=== PATIENT | male | born 1945 | race Caucasian/White ===

== ENCOUNTER → 2017-07-30 | Outpatient (CLI) | payer OTHER | END | disposition home or self-care (01) | LOC: LAB 15:29 | DX: E87.5 Hyperkalemia (principal) ==

== ENCOUNTER → 2017-11-24 | Outpatient (CLI) | payer OTHER | END | disposition home or self-care (01) | LOC: LAB 12:39 | DX: E87.5 Hyperkalemia (principal) ==

== ENCOUNTER 2018-04-05 10:58 | Inpatient (IN) | payer OTHER ==
[~2018-04-05] VITALS: Ht 193 cm; Wt 128.4 kg
--- NOTE | ~2018-04-05 | CON ---
[place], [place] REPORT OF CONSULTATION NAME: YAMEL COATS UNIT #: [id number] ROOM: 515 DOCTOR: JL GEORGE MD BIRTHDATE: [birth year] DOS: 04/05/2018 CARDIOLOGY CONSULTATION REASON FOR CONSULTATION: Congestive heart failure. CLINICAL HISTORY: The patient is a 73-year-old gentleman with history of hypertension, pacemaker, coronary artery disease, chronic kidney disease presented to the Emergency Room with increased swelling as well as progressive shortness of breath. The patient had been consuming increased salt intake recently. The patient apparently went to the [facility] for followup visit and he was sent to the Emergency Room due to symptoms and was admitted to the [facility] Cardiology consulted for further recommendations. The patient is again complaining of progressive shortness of breath and progressive edema for the past several weeks, but denies any chest pain, palpitations, or orthopnea, no PND. No nausea, vomiting, diarrhea. No fever and chills. No bladder or bowel symptoms. REVIEW OF SYSTEMS: Review of the 10 systems negative except as mentioned above. PAST MEDICAL HISTORY: 1. Coronary artery disease, status post bypass in 1999. 2. History of bradycardia with pacemaker insertion. 3. History of chronic kidney disease. 4. Hypertension. 5. Overweight. 6. History of diabetes type 2. PAST SURGICAL HISTORY: History of bypass surgery, history of cardiac stents, history of pacemaker. HOME MEDICATIONS: Reviewed. ALLERGIES: THE PATIENT IS ALLERGIC TO PENICILLIN. FAMILY HISTORY: Mother from myocardial infarction in her 60s. SOCIAL HISTORY: The patient is a former smoker, quit long time ago. Does not use drugs, does not consume alcohol. HOME MEDICATIONS: Reviewed. PHYSICAL EXAMINATION: VITAL SIGNS: Blood pressure 132/60, pulse 74, respiration rate 20. Weight 128.4 kilos, BMI 34.5. GENERAL: Alert, comfortable, in no acute distress. HEENT: Pupils round, equal. No jaundice. Tongue was moist and pharynx was clear. NECK: Supple, no distended neck veins, no carotid bruit. CHEST: Symmetrical, nontender. [place], [place] REPORT OF CONSULTATION NAME: YAMEL COATS UNIT #: [id number] ROOM: 515 DOCTOR: JL GEORGE MD BIRTHDATE: [birth year] LUNGS: A few scattered rhonchi, diminished at bases. HEART: Regular rhythm, no S3. Grade 1/6 systolic murmur. No palpable thrills. ABDOMEN: Obese, nontender. Bowel sounds normal. EXTREMITIES: Showed bilateral edema. Distal pulses are fair. SKIN: Warm and dry. No cyanosis, no clubbing. RECTAL: Deferred. GENITOURINARY: Deferred. NEUROLOGIC: The patient is alert and oriented with no focal neurologic deficit. REVIEW OF THE DIAGNOSTIC TESTS: EKG normal sinus rhythm, first degree AV block, ventricular pacing. His pertinent labs include a creatinine of 2.0, potassium 4.0, hemoglobin 12.7, platelets 264,000. WBC count 9.4. Chest x-ray showed cardiomegaly. The cardiac troponins are negative. IMPRESSION: 1. Acute on-chronic congestive heart failure, possible diastolic dysfunction. 2. Coronary artery disease, status post bypass in 1999. 3. Acute on-chronic renal failure. 4. Status post pacemaker insertion. 5. Long-term anticoagulation with Coumadin. 6. Overweight. 7. History of diabetes. RECOMMENDATIONS: 1. Continue Lasix 40 mg IV every 12 hours, monitor daily weights, in and outs, and renal function as well as blood pressures. 2. Continue rest of his home cardiac medications. 3. Check 2D echo for LV function and valvular function. 4. The patient counseled for medication compliance as well as dietary compliance. 5. Above treatment was discussed with the patient and his , who is at bedside and all questions were answered. JL GEORGE MD CM:CONSTR:REPORT OF CONSULTATION [id number] 05/16/18 0729 interface
--- NOTE | ~2018-04-05 | PR ---
[place], [place] PROGRESS NOTE NAME: YAMEL ARREAGA UNIT #: [id number] ROOM: 515 DOCTOR: ARIEL GALVIN,JL BIRTHDATE: [birth year] DOS: 04/07/2018 REASON FOR VISIT: Congestive heart failure and paroxysmal atrial fibrillation. HISTORY OF PRESENT ILLNESS: The patient is feeling better. He is anticipating discharge today. He is ambulating without any discomfort. Still has some edema, but better than at the time of his admission. No palpitations noted. No dizziness, no PND, no orthopnea. No nausea, vomiting, or diarrhea. No bladder or bowel symptoms, no neurologic symptoms. REVIEW OF SYSTEMS: Review of 8 systems negative except as mentioned above. RHYTHM STRIPS: The patient is currently off the monitor. PHYSICAL EXAMINATION: VITAL SIGNS: Blood pressure 116/45, pulse 87, respiratory rate 18, and weight 128.3 kilos. GENERAL: Alert, comfortable, in no acute distress. NECK: Supple, no distended neck veins, no carotid bruit. CHEST: Symmetrical, nontender. LUNGS: Few scattered rhonchi, but good air entry bilaterally. HEART: Slightly irregular. No S3. Grade 1/6 systolic murmur. ABDOMEN: Obese, nontender. Bowel sounds normal. EXTREMITIES: Showed 1+ edema. Distal pulses are palpable. SKIN: Warm and dry. No cyanosis, no clubbing. RECTAL: Deferred. GENITOURINARY: Deferred. NEUROLOGIC: The patient is alert and oriented. No focal neurologic deficit. MEDICATIONS AND ALLERGIES: Reviewed. LABORATORY DATA: Noted. INR is 2.9. IMPRESSION: 1. Acute on chronic systolic heart failure. The patient is improving. EF is 40%. Continue his beta blockers, nitrates, hydralazine. No CHET or ARB due to his chronic kidney disease. 2. Paroxysmal atrial fibrillation, rate controlled. Coumadin is therapeutic. INR 2.9. 3. Chronic kidney disease. 4. Coronary artery disease, status of bypass surgery. 5. Status post biventricular pacemaker. 6. Hypertension. 7. Non-morbid obesity. RECOMMENDATIONS: 1. Continue current medications. He can be discharged home today. [facility] in 2 weeks. 2. Follow up with Dr. Arreaga in 1 to 2 weeks. 3. There is no family at bedside. [place], [place] PROGRESS NOTE NAME: YAMEL ARREAGA UNIT #: [id number] ROOM: [facility] DOCTOR: ARIEL GALVIN,JL BIRTHDATE: [birth year] 4. Medications and diet compliance was discussed. JL GEORGE MD CM:DEYSI [id number] JL GEORGE MD 04/07/180 interface
--- NOTE | ~2018-04-05 | PR ---
[place], [place] PROGRESS NOTE NAME: YAMEL COATS [facility] #: [id number] UNIT #: [id number] ROOM: 515 DOCTOR: HELGA DELVALLE MD BIRTHDATE: [birth year] DOS: 04/06/2018 CARDIOLOGY PROGRESS NOTE SUBJECTIVE: The patient was seen today at his bedside on 04/06/2018 with his in attendance. He is a 73-year-old man with a history of hypertension, coronary artery disease and chronic renal insufficiency, who is status post bypass surgery. He does have a biventricular pacemaker in place. He presented to the hospital on this occasion with worsening dyspnea and peripheral edema. Since he has been in the hospital, his diuresis has improved and he is breathing better. He does admit that he has been eating saltier foods and snacks lately and he also admits that despite the fact that he has sleep apnea, he does not use his BiPAP as prescribed. PHYSICAL EXAMINATION: VITAL SIGNS: Today, his pulse is 76 and regular, blood pressure is 125/51. He is afebrile. He weighs 128.4 kg and has a body mass index of 34.5. NECK: Supple. He has jugular distention with hepatojugular reflux when sitting at a 45 degree angle. Carotids are full. LUNGS: Respirations are unlabored at rest. He has decreased breath sounds at the bases, but no rales. HEART: Has a regular rhythm with an S4 gallop. I did not hear an S3. The PMI could not be felt. ABDOMEN: Distended, but otherwise benign. EXTREMITIES: Showed 2+ edema to the knees bilaterally. He did have an echocardiogram done today. Left ventricular dimensions are mildly increased with global hypokinesis of the left ventricle. I could not determine if he had wall motion abnormalities because of the quality of the images; however, his ejection fraction is about 40% with stage 2 diastolic dysfunction. He did not have any severe mitral insufficiency. The inferior vena cava was dilated consistent with elevated central venous pressures. LABORATORY DATA: Hemoglobin is 12.9, white count 8800. INR 2.9 and therapeutic. Sodium 141, potassium 4.1, chloride 103, CO2 of 29, BUN 56 and creatinine 1.96. IMPRESSION: 1. Ischemic cardiomyopathy. 2. Coronary artery disease, status post bypass surgery. 3. Acute on chronic combined systolic and diastolic heart failure. 4. Biventricular ICD in place and pacing appropriately. 5. History of sleep apnea syndrome. The patient is noncompliant with recommendations to use a CPAP at night. PLAN: The patient is on an appropriate medical regimen at this time and I did not make any adjustments today. We will continue to diurese him intravenously. I did spend quite a bit of time with him discussing salt restriction, activities, and especially the effect of sleep apnea on cardiac function. The patient states that he understands, but it is unclear whether he will become [place], [place] PROGRESS NOTE NAME: YAMEL COATS UNIT #: [id number] ROOM: [facility] DOCTOR: HELGA DELVALLE MD BIRTHDATE: [birth year] more compliant based on this conversation, We thank the hospitalist physicians for asking our advice regarding his care. HELGA DELVALLE MD CM:PNTRANS 11 HELGA DELVALLE MD 04/07/18 0138 interface
[2018-04-05 10:58] VITALS: BP 147/67
[2018-04-05] MEDS ORDERED: FUROSEMIDE40 MG PO (11:27)
[2018-04-05] MEDS ORDERED: IMDUR SA30 MG PO (11:27)
[2018-04-05] MEDS ORDERED: HYDRALAZINE10 MG PO (11:27)
[2018-04-05] MEDS ORDERED: WARFARIN SOD5 MG PO (11:28)
[2018-04-05] MEDS ORDERED: TRICOR48 MG PO (11:28)
[2018-04-05] MEDS ORDERED: NEURONTIN300 MG PO (11:29)
[2018-04-05] MEDS ORDERED: CRESTOR20 M1 PO (11:29)
[2018-04-05] MEDS ORDERED: CARVEDILOL12.5 MG PO (11:30)
[2018-04-05] MEDS ORDERED: FISH OIL 1,0001 EAC2 PO (11:30)
[2018-04-05] MEDS ORDERED: [UNRECOGNIZED DRUG - OTHER] PO (11:31)
[2018-04-05 11:33] LABS: BASO % 0.3 % (0.0-1.0); EOS # 0.2 10*3/uL (0.0-0.4); HEMATOCRIT 40.5 % (42.0-52.0); HEMOGLOBIN 12.7 g/dl (14.0-18.0); LYMPH # 0.8 10*3/uL (1.3-4.4); MEAN CELL VOLUME 91.8 fl (80.0-94.0); MEAN CORPUSCULAR HGB 28.8 pg (27.0-31.0); MEAN CORPUSCULAR HGB CONC 31.4 g/dl (33.0-37.0); MEAN PLATELET VOLUME 10.7 fl (9.6-12.3); MONO # 0.9 10*3/uL (0.1-1.0); MONO % 9.3 % (3.0-9.0); NEUT # 7.4 10*3/uL (2.3-7.9); NEUT % 78.9 % (47.0-73.0); PLATELET COUNT AUTOMATED 264 10*3/uL (130-400); RED BLOOD COUNT 4.41 10*6/uL (4.50-5.90); RED CELL DISTRI WIDTH 16.2 % (0-14.5); WHITE BLOOD COUNT 9.4 10*3/uL (4.8-10.8)
[2018-04-05 11:45] LABS: ACT PARTIAL THROMBO TIME 35.9 SECONDS (20.8-31.5); INTERNATIONAL NORM RATIO 3.4 (2.0-3.5)
[2018-04-05 11:50] LABS: ALBUMIN 3.5 gm/dl (3.1-4.5); ALKALINE PHOSPHATASE 74 U/L (45-117); BUN 59 mg/dl (7-24); CHLORIDE 99 mmol/L (98-107); CREATININE 2.08 mg/dL (0.70-1.30); POTASSIUM 4.8 mmol/L (3.5-5.1); SGOT/AST 18 IU/L (3-35); SGPT/ALT 29 U/L (12-78); SODIUM 136 mmol/L (136-145); TOTAL PROTEIN 8.2 gm/dL (6.4-8.2)
[2018-04-05 11:52] LABS: TROPONIN I < 0.015 ng/ml (<0.045)
[2018-04-05 12:05] VITALS: BP 129/61
[2018-04-05 13:14] VITALS: BP 122/53
[2018-04-05] MEDS ORDERED: METOPROLOL SUCC50 M1 PO (13:52)
[2018-04-05] MEDS ORDERED: HUMULIN R500 UNIT/1 SQ (13:53)
[2018-04-05 14:10] VITALS: BP 140/60
[2018-04-05 16:27] VITALS: BP 132/60
[2018-04-05 20:00] VITALS: BP 136/64
[2018-04-06] VITALS: BP 140/61
[2018-04-06 06:23] LABS: BASO # 0.1 10*3/uL (0.0-0.1); BASO % 0.6 % (0.0-1.0); EOS # 0.1 10*3/uL (0.0-0.4); EOS % 1.5 % (1.0-4.0); HEMATOCRIT 42.7 % (42.0-52.0); HEMOGLOBIN 12.9 g/dl (14.0-18.0); LYMPH # 1.1 10*3/uL (1.3-4.4); MEAN CELL VOLUME 92.6 fl (80.0-94.0); MEAN CORPUSCULAR HGB CONC 30.2 g/dl (33.0-37.0); MEAN PLATELET VOLUME 10.4 fl (9.6-12.3); MONO # 1.1 10*3/uL (0.1-1.0); MONO % 12.2 % (3.0-9.0); NEUT # 6.4 10*3/uL (2.3-7.9); NEUT % 72.5 % (47.0-73.0); PLATELET COUNT AUTOMATED 279 10*3/uL (130-400); RED BLOOD COUNT 4.61 10*6/uL (4.50-5.90); RED CELL DISTRI WIDTH 16.4 % (0-14.5); WHITE BLOOD COUNT 8.8 10*3/uL (4.8-10.8)
[2018-04-06 06:55] LABS: ALBUMIN 3.6 gm/dl (3.1-4.5); CREATININE 1.96 mg/dL (0.70-1.30); PHOSPHOROUS 4.1 mg/dL (2.5-4.9); POTASSIUM 4.1 mmol/L (3.5-5.1)
[2018-04-06 07:02] LABS: FREE T4 1.05 ng/dl (0.76-1.46); THYROID STIM HORMONE (HS) 3.47 uIU/ml (0.358-4.75); TOTAL PROTEIN 8.1 gm/dL (6.4-8.2)
[2018-04-06 07:09] LABS: INTERNATIONAL NORM RATIO 2.9 (2.0-3.5)
[2018-04-06 07:55] LABS: VITAMIN D, 25-HYDROXY 7.8 ng/mL (30-100)
[2018-04-06 08:00] VITALS: BP 117/48
[2018-04-06 12:00] VITALS: BP 124/60
[2018-04-06 16:00] VITALS: BP 125/51
[2018-04-06 20:00] VITALS: BP 119/51
[2018-04-07] VITALS: BP 120/50
[2018-04-07 07:36] LABS: CREATININE 2.44 mg/dL (0.70-1.30)
[2018-04-07 07:37] LABS: POTASSIUM 5.1 mmol/L (3.5-5.1)
[2018-04-07 08:00] VITALS: BP 116/48
== END 2018-04-07 12:52 | disposition home or self-care (01) | DRG 291 ==
LOC: ED 10:58 → 5E 12:58 → EDHOLD 12:58 → 5E 13:02
PROVIDERS: Emergency Medicine; Family Medicine
DX: I13.0 Hypertensive heart and chronic kidney disease with heart failure and stage 1 through stage 4 chronic kidney disease, or unspecified chronic kidney disease (principal); I50.43 Acute on chronic combined systolic (congestive) and diastolic (congestive) heart failure; N17.0 Acute kidney failure with tubular necrosis; L89.152 Pressure ulcer of sacral region, stage 2; E11.69 Type 2 diabetes mellitus with other specified complication; E11.65 Type 2 diabetes mellitus with hyperglycemia; I48.0 Paroxysmal atrial fibrillation; E11.22 Type 2 diabetes mellitus with diabetic chronic kidney disease; D64.9 Anemia, unspecified; I25.5 Ischemic cardiomyopathy; E66.09 Other obesity due to excess calories; N18.9 Chronic kidney disease, unspecified; I25.10 Atherosclerotic heart disease of native coronary artery without angina pectoris; G47.30 Sleep apnea, unspecified; E83.41 Hypermagnesemia; Z87.891 Personal history of nicotine dependence; Z95.5 Presence of coronary angioplasty implant and graft; Z95.0 Presence of cardiac pacemaker; Z88.0 Allergy status to penicillin; Z79.01 Long term (current) use of anticoagulants; Z95.1 Presence of aortocoronary bypass graft; Z79.899 Other long term (current) drug therapy; I25.2 Old myocardial infarction; Z82.49 Family history of ischemic heart disease and other diseases of the circulatory system; Z79.4 Long term (current) use of insulin; Z91.19 Patient's noncompliance with other medical treatment and regimen; Z68.34 Body mass index [BMI] 34.0-34.9, adult